=== PATIENT | male | born 1990 | race Caucasian/White ===

== ENCOUNTER 2018-11-04 23:54 | Emergency (ER) | payer SELFPAY ==
[2018-11-04 23:54] VITALS: BP 133/82; PULSE 95; RESP 16; TEMP 36.7; BMI 22.7
[2018-11-05 00:02] VITALS: BP 125/70; PULSE 80; RESP 14; O2SAT 98
--- NOTE | 2018-11-05 00:10 | ED.VISSUMM ---
- ER Visit Summary Date of Service: 11/05/18 Chief Complaint: Bilateral ear pain, left leg pain History of Present Illness: The patient is a 28 M who presents with bilateral ear pain and left leg pain. He has a history of tympanostomy tubes. These were placed 2 years ago. He complains of bilateral ear pain for months. He states his girlfriend thought that she saw blood coming out of the ears so thought maybe the tubes were coming out so he came in for evaluation. He also complains of pain in the left buttock rating all the way down the left leg for about 1 week which is relieved with Advil. No history of back surgery. No urinary retention or fecal incontinence. No abdominal pain. No fever. Physical Examination: Afebrile vitals are unremarkable The left tympanic membrane appears normal there is a tube noted there is no drainage there is no erythema or effusion, right tympanic membrane is normal I do not visualize the tube Heart is regular Patient has no reproducible back pain he has a negative straight leg raise he has palpable dorsalis pedis pulses he has normal strength and sensation with 5 out of 5 dorsiflexion, plantarflexion, extensor hallucis longus, normal sensation to light touch Test Results: Not indicated Emergency Department Course and Treatment: Patient was advised to follow-up with his surgeon who placed the tubes for his bilateral ear pain. His back and leg pain are consistent with a lumbar radiculopathy. He has been having relief with Advil. We will add on a prednisone burst. He was advised to follow-up with his primary care physician as well. The new or worsening symptoms and was discharged home. Treatment Plan: [] Disposition: Discharge Impression: Bilateral otalgia Lumbar radiculopathy This note was generated with [employer] dictation software. It may contain incorrect words, spelling, and punctuation that were not noted in review of the chart prior to signing ED Disposition - Plan for ED Patient: Chief Complaint: Back Referrals: Eladio Hill MD [Primary Care Provider] -
--- NOTE | 2018-11-05 00:12 | ED.DEP ---
ED Disposition - Plan for ED Patient: Chief Complaint: Back Instructions: ED Sciatica Prescriptions: Prednisone [Deltasone] 60 mg PO DAILY #15 tab Referrals: Eladio Hill MD [Primary Care Provider] -
[2018-11-05 00:14] VITALS: BP 133/75; PULSE 85; RESP 14; O2SAT 97
== END 2018-11-05 00:25 | disposition home or self-care (01) ==
PROVIDERS: Emergency Provider Emergency Medicine
DX: H92.03 Otalgia, bilateral (principal); M54.16 Radiculopathy, lumbar region; I10 Essential (primary) hypertension; Z96.22 Myringotomy tube(s) status; Z79.899 Other long term (current) drug therapy; Z72.0 Tobacco use
CPT/HCPCS: 99282

== ENCOUNTER 2018-11-22 03:47 | Emergency (ER) | payer SELFPAY ==
[2018-11-22 03:48] VITALS: BP 143/83; PULSE 115; RESP 18; TEMP 36.5; O2SAT 98; BMI 22.6
--- NOTE | 2018-11-22 04:04 | RAD_ITS ---
STUDY: X-RAY - LEFT HIP REASON FOR EXAM: Male, 28 years old. Left hip pain, no recent surgery. History of 2 bone grafts. TECHNIQUE: 2 views of the hip. COMPARISON: None. FINDINGS: Normal femoral head, neck, intertrochanteric region and visualized proximal femur. Normal acetabulum. Normal hip joint. Normal visualized superior and inferior pubic rami and ischial tuberosities. RAD/HIP, UNI W/ Pelvis 2-3 Views IMPRESSION: Normal x-ray examination of the hip. Electronically Signed: Rosalina Duncan MD at 4:23 EST , Service support ,
[2018-11-22] MEDS: HYDROcodone Bitartrate/Apap 5/325 Tablet PO (04:21)
[2018-11-22] MEDS: Naproxen 500 MG Tablet PO (04:22)
--- NOTE | 2018-11-22 04:34 | ED.VISSUMM ---
- ER Visit Summary Date of Service: 11/22/18 Chief Complaint: Left buttock and leg pain History of Present Illness: The patient is a 28 M with no primary care physician. He reports he has pain in his left buttock that radiates down the lateral surface of his left leg that began 4 weeks ago. It is a continuous sharp, burning pain. It is 10 out of 10 currently and at worst. He states is worsened by standing or sitting for prolonged periods of time. Is relieved by nothing including ibuprofen. Reports that he has numbness in his leg that comes and goes if he sits or stands for a long period of time. He denies any problems with his bowels or his bladder. No groin numbness. Patient denies any recent trauma. No fall, MVA, or change in activity. Physical Examination: Vitals: Stable. Afebrile. General: A&O x 3. NAD. Cardiovascular exam: Regular rate and rhythm, no murmur, rub or gallop. Respiratory exam: Clear to auscultation bilaterally. No wheezes or stridor. Abdominal exam: Soft, nontender, nondistended, normal bowel sounds. No peritoneal signs. Back: No vertebral tenderness to palpation. He does have mild tenderness palpation in the left buttock. There is moderate tenderness palpation over the left greater trochanter.. No point tenderness. Negative straight leg bilaterally. 5/5 DF, PF, EHL bilaterally. Decreased sensation to light touch throughout his entire left lower extremity. This is not in an anatomic distribution. Extremity: No clubbing, cyanosis, or edema. Test Results: Left hip x-ray shows no acute disease. Emergency Department Course and Treatment: An [facility] report was obtained which shows no opiates in the past year. Patient was treated with naproxen and [place] here. Treatment Plan: Patient will be discharged naproxen and [place]. Instructed to follow-up with Dr. Winchester in 1 week if not improving. I did discuss them symptomatic management including strengthening. I suggested that physical therapy may be helpful. Return to the emergency department for any worsening symptoms. Disposition: To home in improved and stable condition. Impression: 1. Left hip/buttock pain. This note was generated with [employer] software. It may contain incorrect words, spelling, and punctuation that were not noted in review of the chart prior to signing ED Disposition - Plan for ED Patient: Disposition: Home or Assisted Living Chief Complaint: Lower Extremity Injury Instructions: ED Sciatica Prescriptions: Hydrocodone Bitart/Apap 5-325 [[place] 5MG-325MG] 1 tablet PO Q4H PRN PRN 2 Days #10 tablet PRN Reason: Pain Naproxen [Naprosyn] 500 mg PO BID #20 tablet Referrals: Kera Winchester MD [STAFF PHYSICIAN] - 1 Week if not improving
[2018-11-22 04:42] VITALS: BP 127/77; PULSE 107; RESP 18; O2SAT 98
== END 2018-11-22 04:43 | disposition home or self-care (01) ==
PROVIDERS: Emergency Provider Emergency Medicine
DX: M25.552 Pain in left hip (principal); R51 Headache; R20.0 Anesthesia of skin; Z72.0 Tobacco use
CPT/HCPCS: 73502; 99283